=== PATIENT | female | born 1950 | race Caucasian/White ===

== ENCOUNTER 2018-12-16 12:05 | Emergency (ER) | payer MEDICARE, OTHER ==
[2018-12-16 13:00] LABS: ABSOLUTE EOSINOPHILS # (AUTO) 0.3 10^3/uL (0.0-0.6); ABSOLUTE LYMPHOCYTES (AUTO) 2.2 10^3/uL (0.5-4.7); ABSOLUTE MONOCYTES (AUTO) 0.6 10^3/uL (0.1-1.4); ABSOLUTE NEUT (AUTO) 4.8 10^3/uL (1.7-8.2); BASOPHILS % (AUTO) 0.3 % (0-2); EOSINOPHILS % (AUTO) 3.6 % (0-6); HEMATOCRIT 40.3 % (36.0-47.0); HEMOGLOBIN 13.4 g/dL (12.0-15.5); LYMPHOCYTES % (AUTO) 27.3 % (13-45); MEAN CORPUSCULAR HEMOGLOBIN 27.3 pg (27.0-33.4); MEAN CORPUSCULAR HGB CONC 33.2 g/dL (32.0-36.0); MEAN CORPUSCULAR VOLUME 82 fl (80-97); MONOCYTES % (AUTO) 7.7 % (3-13); PLATELET COUNT 313 10^3/uL (150-450); RED CELL DISTRIBUTION WIDTH 14.2 % (11.5-14.0); SEGMENTED NEUTROPHILS % (AUTO) 61.1 % (42-78); TOTAL CELLS COUNTED % (AUTO) 100 %; WHITE BLOOD COUNT 7.9 10^3/uL (4.0-10.5)
[2018-12-16 13:09] LABS: ALBUMIN 4.2 g/dL (3.5-5.0); ALKALINE PHOSPHATASE 120 U/L (38-126); ANION GAP 8 (5-19); ASPARTATE AMINO TRANSFERASE 39 U/L (14-36); BILIRUBIN,DIRECT 0.4 mg/dL (0.0-0.4); BLOOD UREA NITROGEN 16 mg/dL (7-20); CALCIUM 9.5 mg/dL (8.4-10.2); CARBON DIOXIDE 27 mmol/L (22-30); CHLORIDE 101 mmol/L (98-107); GLUCOSE 108 mg/dL (75-110); TOTAL PROTEIN 7.5 g/dL (6.3-8.2)
[2018-12-16] MEDS ORDERED: ONDANSETRON HCL INJ/PF 4 MG/2 ML SDV IV ONE (13:56)
[2018-12-16] MEDS ORDERED: NORMAL SALINE 1000 ML 1,000 ML IV ONE (13:56)
[2018-12-16] MEDS ORDERED: MORPHINE SULFATE 10 MG/ML INJ IV ONE (13:56)
[2018-12-16] MEDS ORDERED: PANTOPRAZOLE SODIUM 40 MG VIAL IV ONE (14:04)
--- NOTE | 2018-12-16 14:07 | ER Document Report ---
ED General - General Chief Complaint: Abdominal Pain Stated Complaint: ABDOMINAL PAIN Time Seen by Provider: 12/16/18 13:32 Primary Care Provider: BUDDY SEN MD [Primary Care Provider] - Follow up as needed - [facility] Notes: This is a 68-year-old female who presents today with a complaint of epigastric a nd right upper quadrant pain since yesterday. Patient describes the pain as aching, associated with nausea and going to her back. She denies any vomiting or diarrhea. She denies any constipation. Pain is sometimes worse with food. Patient notes that she had an upper endoscopy done about 2 to 3 months ago and she was advised to follow-up with surgery for gallbladder disease. She did not follow-up. She describes her symptoms as moderate. - Related Data Allergies/Adverse Reactions: No Known Drug Allergies Allergy (Verified 03/02/13 07:35) Past Medical History - Social History Smoking Status: Unknown if Ever Smoked Family History: Reviewed & Not Pertinent Patient has suicidal ideation: No Patient has homicidal ideation: No Renal/ Medical History: Reports: Hx Kidney Stones Past Surgical History: Reports: Hx Gastric Bypass Surgery, Hx Hysterectomy - FOR UTERINE CANCER - Immunizations Hx Diphtheria, Pertussis, Tetanus Vaccination: Yes Review of Systems - Review of Systems Cardiovascular: denies: Chest pain, Palpitations Gastrointestinal: Abdominal pain, Nausea. denies: Diarrhea, Constipation Genitourinary: denies: Burning, Dysuria -: Yes All other systems reviewed and negative Physical Exam - Vital signs Vitals: Temp Pulse Resp BP Pulse Ox 97.3 F 62 18 130/66 H 99 12/16/18 12:09 12/16/18 12:09 12/16/18 12:09 12/16/18 12:09 12/16/18 12:09 - General General appearance: Appears well, Alert - HEENT Head: Normocephalic, Atraumatic Eyes: Normal Pupils: PERRL - Respiratory Respiratory status: No respiratory distress Chest status: Nontender Breath sounds: Normal Chest palpation: Normal - Cardiovascular Rhythm: Regular Heart sounds: Normal auscultation Murmur: No - Abdominal Inspection: Normal Distension: No distension Bowel sounds: Normal Tenderness: Tender - There is epigastric and right upper quadrant tenderness. T here is no lower abdominal pain or tenderness. No guarding or rebound. Organomegaly: No organomegaly - Back Back: Normal, Nontender - Neurological Neuro grossly intact: Yes Cognition: Normal Orientation: AAOx4 [place] Coma Scale Eye Opening: Spontaneous [place] Coma Scale Verbal: Oriented [place] Coma Scale Motor: Obeys Commands [place] Coma Scale Total: 15 Speech: Normal Motor strength normal: LUE, RUE, LLE, RLE Sensory: Normal - Psychological Associated symptoms: Normal affect, Normal mood - Skin Skin Temperature: Warm Skin Moisture: Dry Skin Color: Normal Course - Re-evaluation Re-evalutation: 12/16/18 14:06 Differential diagnosis includes cholelithiasis versus cholecystitis versus pancreatitis versus gastritis. Bowel obstruction is less likely. Will check basic labs. Will get an ultrasound and abdominal series. 12/16/18 15:51 Patient reevaluated. She feels much better. She would like something for pain before she goes home. Labs and imaging reviewed. Ultrasound consistent with biliary colic but no pericholecystic fluid or thickening to suggest acute cholecystitis. Labs unremarkable. I have discussed follow-up options with patient. Have discussed the option of admission for cholecystectomy for biliary colic, or discharge with follow-up with surgery for elective procedure given no clinical signs of acute cholecystitis at this time. She would rather go home. We will put her on some pain medication. Patient counseled to return if worse or concerns. She is stable for discharge. - Vital Signs Vital signs: Temp Pulse Resp BP Pulse Ox 97.3 F 62 18 130/66 H 99 12/16/18 12:09 12/16/18 12:09 12/16/18 12:09 12/16/18 12:09 12/16/18 12:09 - Laboratory Result Diagrams: 12/16/18 12:22 12/16/18 12:22 Laboratory results interpreted by me: 12/16/18 12/16/18 12:22 12:22 RDW 14.2 H Sodium 135.8 L Est GFR (MDRD) Non-Af 53 L AST 39 H Discharge - Discharge Clinical Impression: Biliary colic Condition: Good Disposition: HOME, SELF-CARE Instructions: Abdominal Pain ([facility]), Gallbladder Disease ([facility]) Prescriptions: Oxycodone HCl/Acetaminophen [Percocet 5-325 mg Tablet] 1 tab PO Q4H PRN #15 tablet PRN Reason: Ondansetron [Zofran Odt 4 mg Tablet] 1 tab PO Q4H PRN #15 tab.rapdis PRN Reason: For Nausea/Vomiting Referrals: BUDDY SEN MD [Primary Care Provider] - Follow up as needed BERLIN SINGH MD [[facility]] - (Call tomorrow to schedule follow-up appointment. )
--- NOTE | 2018-12-16 15:05 | RADIOLOGY REPORT (SQ) ---
EXAM DESCRIPTION: ACUTE ABDOMEN SERIES COMPLETED DATE/TIME: 12/16/2018 2:34 pm REASON FOR STUDY: RUQ pain COMPARISON: CT chest 08/06/2008 NUMBER OF VIEWS: Three views. TECHNIQUE: Frontal chest, supine abdomen and upright abdomen radiographic images acquired. LIMITATIONS: None. FINDINGS: CHEST: Lungs clear of infiltrates. Cardiac silhouette size, moises unremarkable. FREE AIR: None. No abnormal gas collections. BOWEL GAS PATTERN: Moderate to large amount of stool throughout the colon. No dilated small bowel lo ops worrisome for small bowel obstruction. CALCIFICATIONS: 10 mm calcification over the left renal pelvis, likely an intrarenal nonobstructive s tone HARDWARE: None in the abdomen. SOFT TISSUES: No gross mass or suggestion of organomegaly. BONES: No acute fracture. No worrisome bone lesions. OTHER: No other significant finding. IMPRESSION: Moderate to large amount of stool throughout colon 10 mm calcification over the left renal pelvis, likely an intrarenal nonobstructive stone. TECHNICAL DOCUMENTATION: JOB ID: [id number] [employer]- All Rights Reserved Reading location - IP/workstation name: [email or web address]
--- NOTE | 2018-12-16 15:11 | RADIOLOGY REPORT (SQ) ---
EXAM DESCRIPTION: U/S ABDOMEN LIMITED W/O DOP COMPLETED DATE/TIME: 12/16/2018 2:50 pm REASON FOR STUDY: RUQ pain COMPARISON: None. TECHNIQUE: Dynamic and static grayscale images acquired of the abdomen and recorded on PACS. Additio nal selected color Doppler and spectral images recorded. LIMITATIONS: Large patient, midline bowel gas FINDINGS: PANCREAS: Not well seen LIVER: No masses. Echotexture normal. LIVER VASCULATURE: Normal directional flow of the main portal vein and hepatic veins. GALLBLADDER: Distended, stones and sludge are present. No gallbladder wall thickening or pericholecy stic fluid. ULTRASOUND-DETECTED HERRERA'S SIGN: Positive INTRAHEPATIC DUCTS AND COMMON DUCT: CBD and intrahepatic ducts normal caliber. No filling defects. INFERIOR VENA CAVA: Normal flow. AORTA: No aneurysm. RIGHT KIDNEY: Normal size. Normal echogenicity. No solid or suspicious masses. No hydronephrosis. No calcifications. PERITONEAL AND RIGHT PLEURAL SPACE: No ascites or effusions. OTHER: No other significant findings. IMPRESSION: Distended gallbladder with stones and sludge. Positive sonographic Herrera sign TECHNICAL DOCUMENTATION: JOB ID: [id number]- All Rights Reserved Reading location - IP/workstation name: [email or web address]
[2018-12-16] MEDS ORDERED: OXYCODONE-ACETAMINOPHEN 5-325 MG TABLET PO ONE (15:50)
[2018-12-16 16:10] VITALS: BP 137/94
[2018-12-16 16:12] LABS: APPEARANCE,URINE SLIGHTLY-CLOUDY; BILIRUBIN,URINE NEGATIVE (NEGATIVE); COLOR,URINE AMBER; GLUCOSE, URINE NEGATIVE (NEGATIVE); KETONES,URINE TRACE mg/dL (NEGATIVE); LEUKOCYTE ESTERASE,URINE TRACE (NEGATIVE); NITRITE,URINE NEGATIVE (NEGATIVE); PROTEIN,URINE NEGATIVE (NEGATIVE); URINE SPECIFIC GRAVITY 1.021
--- NOTE | 2018-12-16 17:46 | EKG REPORT ---
SEVERITY:- NORMAL ECG - SINUS RHYTHM : Confirmed by: Nitin Trammell MD 16-Dec-2018 17:45:27
== END 2018-12-16 16:35 | disposition home or self-care (01) ==
LOC: ER 12:05
DX: K80.20 Calculus of gallbladder without cholecystitis without obstruction (principal); R10.13 Epigastric pain; R10.11 Right upper quadrant pain; R10.816 Epigastric abdominal tenderness; R10.811 Right upper quadrant abdominal tenderness; R11.0 Nausea; Z98.84 Bariatric surgery status; Z87.442 Personal history of urinary calculi; Z85.42 Personal history of malignant neoplasm of other parts of uterus; Z90.710 Acquired absence of both cervix and uterus
CPT/HCPCS: 93005; 99284; 96361; 96374; 96375; 36415; 83690; 85025; 80053; 81001; 74022; 76705; 93010; J2270; A9270; C9113; J2405; J7030; S0164

== ENCOUNTER 2019-01-24 09:42 | Day surgery (SDC) | payer MEDICARE, OTHER ==
[2019-01-17 09:51] LABS: ABSOLUTE EOSINOPHILS # (AUTO) 0.3 10^3/uL (0.0-0.6); ABSOLUTE LYMPHOCYTES (AUTO) 1.3 10^3/uL (0.5-4.7); ABSOLUTE MONOCYTES (AUTO) 0.4 10^3/uL (0.1-1.4); ABSOLUTE NEUT (AUTO) 2.6 10^3/uL (1.7-8.2); BASOPHILS % (AUTO) 0.7 % (0-2); HEMATOCRIT 40.1 % (36.0-47.0); HEMOGLOBIN 13.2 g/dL (12.0-15.5); LYMPHOCYTES % (AUTO) 28.5 % (13-45); MEAN CORPUSCULAR HEMOGLOBIN 27.1 pg (27.0-33.4); MEAN CORPUSCULAR HGB CONC 32.9 g/dL (32.0-36.0); MEAN CORPUSCULAR VOLUME 82 fl (80-97); PLATELET COUNT 259 10^3/uL (150-450); RED BLOOD COUNT 4.86 10^6/uL (3.72-5.28); RED CELL DISTRIBUTION WIDTH 14.3 % (11.5-14.0); SEGMENTED NEUTROPHILS % (AUTO) 55.8 % (42-78); TOTAL CELLS COUNTED % (AUTO) 100 %; WHITE BLOOD COUNT 4.6 10^3/uL (4.0-10.5)
[2019-01-17 10:23] LABS: ANION GAP 10 (5-19); BLOOD UREA NITROGEN 13 mg/dL (7-20); CALCIUM 9.5 mg/dL (8.4-10.2); CARBON DIOXIDE 27 mmol/L (22-30); CHLORIDE 105 mmol/L (98-107); GLUCOSE 102 mg/dL (75-110); POTASSIUM 4.4 mmol/L (3.6-5.0)
--- NOTE | 2019-01-17 20:18 | EKG REPORT ---
SEVERITY:- OTHERWISE NORMAL ECG - SINUS BRADYCARDIA : Confirmed by: Ana Collazo MD 17-Jan-2019 20:17:48
[~2019-01-24 09:42] MED LIST: CEFAZOLIN SODIUM 1 GM in DEXTROSE 5%-WATER 50 ML IV PRN; DEXAMETHASONE SOD PHOSPHATE INJ 4 MG/1 ML VIAL ONE; GLYCOPYRROLATE 1 MG/5 ML VIAL ONE; LACTATED RINGERS 1000 ML IV PRN; LIDOCAINE 0.5% INJ-PF (5 MG/ML) 50 ML SDV SUBCUT PRN; LIDOCAINE 2% INJ-PF (20 MG/ML) 2 ML AMPUL ONE; METRONIDAZOLE 500 MG/NS RTU 500 MG/100 ML RTUPB IV ONE; METRONIDAZOLE 500 MG/NS RTU 500 MG/100 ML RTUPB IV PRN; NEOSTIGMINE METHYLSULFATE 10 MG/10 ML VIAL ONE; ONDANSETRON HCL INJ/PF 4 MG/2 ML SDV ONE; ROCURONIUM BROMIDE INJ 50 MG/5 ML VIAL IV ONE; SUCCINYLCHOLINE CHLORIDE INJ 200 MG/10 ML VIAL ONE
[2019-01-24] MEDS ORDERED: FENTANYL CITRATE INJ/PF 250 MCG/5 ML AMPULE ONE (12:37)
[2019-01-24] MEDS ORDERED: MIDAZOLAM 2 MG/2 ML INJ ONE (12:37)
[2019-01-24] MEDS ORDERED: PROPOFOL INJ 200 MG/20 ML VIAL IV ONE (12:38)
[2019-01-24] MEDS ORDERED: MORPHINE SULFATE 10 MG/ML INJ ONE (12:38)
[2019-01-24] MEDS ORDERED: EPHEDRINE SULFATE INJ 50 MG/1 ML AMPULE ONE (13:31)
[2019-01-24] MEDS ORDERED: BUPIVACAINE HCL 0.25 % INJ/PF (2.5 MG/1 ML) 30 ML VIAL ONE (13:43)
[2019-01-24] MEDS ORDERED: FENTANYL CITRATE INJ/PF 100 MCG/2 ML AMPUL IV PRN (13:52)
[2019-01-24] MEDS ORDERED: PROMETHAZINE HCL INJ 25 MG/1 ML VIAL IV PRN (13:52)
[2019-01-24] MEDS ORDERED: DIPHENHYDRAMINE HCL 50 MG/ML VIAL IV PRN (13:52)
[2019-01-24] MEDS ORDERED: MORPHINE SULFATE 10 MG/ML INJ IV PRN (13:52)
[2019-01-24] MEDS ORDERED: MEPERIDINE HCL/PF INJ 25 MG/1 ML DISP.SYRIN IV PRN (13:52)
--- NOTE | 2019-01-24 14:20 | Operative Report ---
Nonrecallable Operative Report DATE OF SURGERY: 01/24/19 PREOPERATIVE DIAGNOSIS: Abdominal pain, cholelithiasis history of gastric bypass POSTOPERATIVE DIAGNOSIS: Abdominal pain, gastro-gastric fistula number status post cholecystectomy OPERATION: Esophagogastroduodenoscopy and laparoscopic cholecystectomy SURGEON: EDDA BOOKER 1ST VENTILATION MECHANIC: ELY SCHMIDT ANESTHESIA: GA TISSUE REMOVED OR ALTERED: Gallbladder COMPLICATIONS: None ESTIMATED BLOOD LOSS: 20 cc INTRAOPERATIVE FINDINGS: See dictation PROCEDURE: Procedure, patient was brought to the operating room awake alert in stable condition placed on the operating table in supine position induced under general anesthesia intubated the abdomen was prepped and draped in usual sterile fashion and after appropriate timeout and site verification the procedure commenced. Esophagogastroduodenoscopy. The Olympus gastroscope was placed into the posterior pharynx and traversed down the upper esophagus into the gastric pouch we immediately noted the gastrojejunal anastomosis and it looked normal just to the right of that was a second opening that appeared to have tanika surrounding it I was not sure if that was the anastomosis or if the larger ostia was the anastomosis I passed the scope in through the larger anastomosis and immediately found myself in the small bowel I traversed approximately 30 cc of small bowel and noted bile but no evidence of any ampulla or anything suggesting the duodenum therefore I felt that this was the Sridevi limb. I pulled the scope back into the gastric pouch and identified the smaller ostia opening as I passed through that I noted it bled easily and was friable with obvious tanika at the periphery it passed through the opening and into what appeared to be the gastric remnant I explored the gastric remnant it appeared to be normal. We then identified the pylorus as I passed through the pylorus into the duodenum I noted some bile but no evidence of a duodenal ulcer or duodenal bulb ulceration. I slowly withdrew the scope and into the gastric pouch. And then passed it back up the esophagus and completed the exam. 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 We then proceeded with the laparoscopic portion of the procedure. A varies needle was placed into the umbilicus and the abdomen was insufflated with 6 L of CO2 gas. A infraumbilical 10 mm incision was made with a 10 blade and a 10 mm port placed in the abdominal cavity intra-abdominal visualization revealed no evidence of a varies needle or trocar injury. Epigastric 5 mm port placed under direct vision to lateral 5 mm ports under direct vision the gallbladder was distended was decompressed with a cholecystostomy needle. Once was decompressed was placed on traction the hepatoduodenal ligament was isolated the cystic duct and cystic artery were both dissected out of the fibrofatty tissue of the hepatoduodenal ligament. 2 endoclips were placed on the stay side and one in the specimen side of the cystic duct similarly the cystic artery was handled both the structures were divided with the EndoShears the gallbladder was dissected out of the liver bed with Bovie cautery placed in an Endobag and removed through the umbilical port site the right upper quadrant was copiously irrigated with normal saline suctioned dry hemostasis noted to be intact we reduce the pneumoperitoneum and closed the fascial defect at the umbilical port site with 0 Vicryl and closed all of 4 skin incisions with intracuticular 4-0 Biosyn Steri-Strips completed the procedure estimated blood loss was less than 20 cc sponge needle counts correct x2 the patient was awakened in the operating explained transferred to recovery in stable condition no complications Ely pierre was present for the entire operation for help with wound retraction wound closure
[2019-01-24] MEDS ORDERED: ACETAMINOPHEN 1,000 MG/100 ML RTUPB IV ONE (14:21)
--- NOTE | 2019-01-24 14:31 | Discharge Summary ---
Discharge Summary (SDC) - Discharge Final Diagnosis: Cholelithiasis gastro-gastric fistula Date of Surgery: 01/24/19 Discharge Date: 01/24/19 Condition: Good Referrals: BUDDY SEN MD [Primary Care Provider] - Discharge Diet: As Tolerated Discharge Activity: Activity As Tolerated, No Lifting Over 10 Pounds Report the Following to Your Physician Immediately: Shortness of Breath, Increase in Pain, Fever over 101 Degrees, Unusual Bleeding - Is a follow-up wound with me in 7 to 10 days
[2019-01-24] MEDS ORDERED: KETOROLAC TROMETHAMINE INJ/PF 30 MG/1 ML SDV ONE (15:16)
[2019-01-24 16:30] VITALS: BP 111/56
== END 2019-01-24 16:25 | disposition home or self-care (01) ==
LOC: OROUT 09:42
PROVIDERS: ATTEND Surgery
DX: K80.10 Calculus of gallbladder with chronic cholecystitis without obstruction (principal); K31.6 Fistula of stomach and duodenum; K21.9 Gastro-esophageal reflux disease without esophagitis; I10 Essential (primary) hypertension; E78.00 Pure hypercholesterolemia, unspecified; I25.10 Atherosclerotic heart disease of native coronary artery without angina pectoris; Z85.828 Personal history of other malignant neoplasm of skin; Z85.42 Personal history of malignant neoplasm of other parts of uterus; Z79.899 Other long term (current) drug therapy
CPT/HCPCS: 93005; 36415; 85025; 80048; 88304 ×2; 93010; 43235; 47562; J2250; J0690; J3490 ×4; J1100; J3010; J1885; J2710; J0330; J2405; J7060; J2704; J0131; 790; J2270